=== PATIENT | male | born 1990 ===

== ENCOUNTER 2023-07-21 13:39 | Emergency (ER) | payer SELFPAY ==
--- NOTE | 2023-07-21 14:06 | ED Neurological Problem ---
General Chief Complaint: Neurological Problems Stated Complaint: RT SIDE FACIAL NUMBNESS Nursing Triage Note: PT REPORTS SOME RIGHT SIDED FACIAL NUMBNESS AND DROOPING AND SOME PRESSURE IN THE BACK OF HIS HEAD SINCE ABOUT 0900. 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 Started this morning, slow in onset, does not feel like he can raise his eyebrow. Has never happened before. Denies any fever, headache, vision changes, voice changes, weakness in other parts of his body, or any true numbness. Allergies and Home Medications Allergies Coded Allergies: No Known Drug Allergies (Unverified , 07/21/23) Patient Home Medication List Home Medication List Reviewed: Yes Prednisone (Prednisone) 20 Mg Tab, 60 MG PO DAILY Prescribed by: IDA MIN on 07/21/23 1407 Valacyclovir HCl (Valacyclovir) 1,000 Mg Tablet, 1,000 MG PO TID Prescribed by: IDA MIN on 07/21/23 1407 Review of Systems Review of Systems Constitutional: No fever Eyes: No Symptoms Reported Ears, Nose, Mouth, Throat: no symptoms reported Respiratory: no symptoms reported Cardiovascular: no symptoms reported Gastrointestinal: no symptoms reported Genitourinary: no symptoms reported Musculoskeletal: no symptoms reported Skin: no symptoms reported Psychiatric/Neurological: See HPI Endocrine: No Symptoms Reported Past Scvszye-Dkvfuw-Nbzgfa Hx Patient Social History Tobacco Use?: Yes Tobacco type used: Cigarettes Smoking Status: Current Someday Smoker Use of E-Cig and/or Vaping dev: No Substance use?: No Alcohol Use?: No Pt feels they are or have been: No Physical Exam Vital Signs Vital Signs - First Documented 07/21/23 13:40 Temp 36.4 Pulse 75 Resp 16 B/P (MAP) 165/90 (115) Pulse Ox 99 O2 Delivery Room Air Capillary Refill : Less Than 3 Seconds Height, Weight, BMI Height: '" Weight: lbs. oz. kg; BMI Method: General Appearance: WD/WN, no apparent distress HEENT: PERRL/EOMI, normal ENT inspection, pharynx normal Neck: non-tender, full range of motion, supple, normal inspection Respiratory: chest non-tender, lungs clear, normal breath sounds, no respiratory distress, no accessory muscle use Cardiovascular: regular rate, rhythm, no edema, no murmur Gastrointestinal: normal bowel sounds, non tender, soft; No distended, No guarding, No rebound Back: normal inspection, no CVA tenderness Extremities: normal range of motion, non-tender, normal inspection, no pedal edema, no calf tenderness, normal capillary refill Neurologic/Psychiatric: alert, normal mood/affect, other (Right-sided facial droop that includes his right eyebrow and forehead, no numbness, cranial nerves otherwise normal) Crainal Nerves: normal hearing, normal speech, PERRL Coordination/Gait: normal finger to nose, normal gait Motor/Sensory: no sensory deficit, no pronator drift Skin: normal color, warm/dry Progress/Results/Core Measures Results/Orders Vital Signs/I&O 07/21/23 07/21/23 13:40 14:13 Temp 36.4 36.4 Pulse 75 75 Resp 16 16 B/P (MAP) 165/90 (115) 165/90 Pulse Ox 99 99 O2 Delivery Room Air Room Air Blood Pressure Mean: 115 Progress Progress Note : Progress Note 33-year-old male with above history coming in due to right-sided facial droop. ABCs were intact and vitals were stable on presentation. Physical exam includes unilateral facial paralysis that does not spare the forehead, cannot raise the eyebrow on the unaffected side. 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 He had complained of numbness, however has no objective numbness on exam, and he states this sensation is exactly the same when I test him from 1 side to the other. We will start him on steroids and antivirals. I will have him follow-up with his PCP as an outpatient. Departure Impression Primary Impression: Alvarez's palsy Disposition: 01 HOME, SELF-CARE Condition: Stable Departure-Patient Inst. Decision time for Depature: 14:15 Referrals: NO,LOCAL PHYSICIAN (PCP/Family) Primary Care Physician Patient Instructions: Alvarez's Palsy (DC) Add. Discharge Instructions: You have what is called Alvarez's palsy. This causes weakness on the right side of your face. This typically will get worse and can take quite some time to improve. It can cause changes in your taste, changes in your hearing where things sound louder, can make it difficult to produce tears, and you can have some feelings of numbness at times. There can also be pain behind your ear sometimes. You will be on a steroid and an antiviral for the next week. Please follow back up with your regular doctor, however it does take quite some time to get better. Tape your eye shut at night, because the eye sometimes opens up and can get dry. Tienes lo que se llama parlisis de Alvarez. [place] provoca debilidad en el lado derecho de la bella. Por lo general, esto empeorar y puede christopher bastante tiempo mejorar. Puede causar cambios en el gusto, cambios en la audicin donde las cosas suenan ms [place], puede dificultar la produccin de lgrimas y, a veces, puede tener cierta sensacin de entumecimiento. A veces tambin puede danis dolor detrs de la oreja. Estar tomando un esteroide y un antiviral popeye la prxima semana. Vuelva a consultar con bob mdico de cabecera; sin embargo, la mejora lleva bastante tiempo. Cirrese el flory con cinta adhesiva por la noche, porque a veces el flory se abre y puede secarse. Scripts Valacyclovir HCl (Valacyclovir) 1,000 Mg Tablet 1000 MG PO TID for 1 Day, #21 TAB Prov: IDA MIN MD 07/21/23 Prednisone (Prednisone) 20 Mg Tab 60 MG PO DAILY for 7 Days, #21 TAB 0 Refills Prov: IDA MIN MD 07/21/23 Work/School Note: Work Release Form Date Seen in the Emergency Department: Jul 21, 2023 Return to Work: Jul 22, 2023 Restrictions: No Restrictions IDA MIN MD Jul 21, 2023 14:06
[2023-07-21] MEDS ORDERED: PRD20T PO (14:07)
[2023-07-21] MEDS ORDERED: VALA10007 PO (14:07)
[2023-07-21 14:13] VITALS: BP 165/90
== END 2023-07-21 14:13 | disposition home or self-care (01) ==
LOC: ER FS 13:42
DX: G51.0 Bell's palsy (principal); F17.210 Nicotine dependence, cigarettes, uncomplicated
CPT/HCPCS: 99281

== ENCOUNTER 2023-08-08 09:40 | Emergency (ER) | payer SELFPAY ==
[~2023-08-08] VITALS: Ht 162 cm; Wt 96.0 kg
[~2023-08-08 09:40] MED LIST: PRD20T PO; VALA10007 PO
--- NOTE | 2023-08-08 09:56 | ED Chest Pain ---
General Stated Complaint: CHEST PAIN History of Present Illness Date Seen by Provider: Aug 08, 2023 Time Seen by Provider: 09:51 Initial Comments 33-year-old male brought in by EMS from [facility] with concerns of EKG changes. Patient was reported to EMS that he has had 4 days of chest pain and that he has some concerning findings on EKG. EKG brought in by [facility] does not show any acute findings or concerns but does have some artifact. Patient reports that he was there following up on Alvarez's palsy and has no complaints of chest pain to me. He does report that he was just really anxious and nervous. Patient is Stateless-speaking and official court interpreter is used so HPI may be lost during translation. However at this time he denies chest pain or having chest pain. He denies shortness of breath, fever, chills, cough. Twelve-lead obtained by EMS in route shows no acute findings and was reviewed by me. Allergies and Home Medications Allergies Coded Allergies: No Known Drug Allergies (Unverified , 07/21/23) Patient Home Medication List Home Medication List Reviewed: Yes Prednisone (Prednisone) 20 Mg Tab, 60 MG PO DAILY Prescribed by: IDA MIN on 07/21/23 1407 Valacyclovir HCl (Valacyclovir) 1,000 Mg Tablet, 1,000 MG PO TID Prescribed by: IDA MIN on 07/21/23 1407 Review of Systems Review of Systems Constitutional: see HPI EENTM: See HPI Respiratory: No Symptoms Reported Cardiovascular: See HPI Gastrointestinal: No Symptoms Reported Genitourinary: No Symptoms Reported Musculoskeletal: no symptoms reported Skin: no symptoms reported Psychiatric/Neurological: See HPI Physical Exam Vital Signs Vital Signs - First Documented 08/08/23 10:25 Temp 36.9 Pulse 77 Resp 16 B/P (MAP) 144/82 (102) Pulse Ox 96 O2 Delivery Room Air Capillary Refill : Height, Weight, BMI Height: '" Weight: lbs. oz. kg; BMI Method: General Appearance: No Apparent Distress, WD/WN HEENT: Other (Mild right-sided droop consistent with Alvarez's palsy diagnosed) Neck: Full Range of Motion, Normal Inspection Respiratory: Lungs Clear, Normal Breath Sounds Cardiovascular: Regular Rate, Rhythm, No Edema, No Gallop Gastrointestinal: Non Tender, Soft Extremity: Normal Capillary Refill, Normal Inspection, Normal Range of Motion Neurologic/Psychiatric: Alert, Oriented x3 Skin: Normal Color, Warm/Dry Progress/Results/Core Measures Results/Orders Lab Results Laboratory Tests Test 08/08/23 09:50 Range/Units White Blood Count 6.1 4.3-11.0 10^3/uL Red Blood Count 5.47 4.30-5.52 10^6/uL Hemoglobin 16.4 13.3-17.7 g/dL Hematocrit 48 40-54 % Mean Corpuscular Volume 88 80-99 fL Mean Corpuscular Hemoglobin 30 25-34 pg Mean Corpuscular Hemoglobin Concent 34 32-36 g/dL Red Cell Distribution Width 13.2 10.0-14.5 % Platelet Count 170 130-400 10^3/uL Mean Platelet Volume 11.1 9.0-12.2 fL Immature Granulocyte % (Auto) 1 % Neutrophils (%) (Auto) 65 42-75 % Lymphocytes (%) (Auto) 26 12-44 % Monocytes (%) (Auto) 6 0-12 % Eosinophils (%) (Auto) 2 0-10 % Basophils (%) (Auto) 0 0-10 % Neutrophils # (Auto) 4.0 1.8-7.8 10^3/uL Lymphocytes # (Auto) 1.6 1.0-4.0 10^3/uL Monocytes # (Auto) 0.4 0.0-1.0 10^3/uL Eosinophils # (Auto) 0.1 0.0-0.3 10^3/uL Basophils # (Auto) 0.0 0.0-0.1 10^3/uL Immature Granulocyte # (Auto) 0.0 0.0-0.1 10^3/uL Percent Immature Platelet Fraction 7.6 0.0-7.6 % Sodium Level 140 135-145 MMOL/L Potassium Level 3.9 3.6-5.0 MMOL/L Chloride Level 102 98-107 MMOL/L Carbon Dioxide Level 25 21-32 MMOL/L Anion Gap 13 5-14 MMOL/L Blood Urea Nitrogen 13 7-18 MG/DL Creatinine 0.64 0.60-1.30 MG/DL Estimat Glomerular Filtration Rate 129 BUN/Creatinine Ratio 20 Glucose Level 110 H 70-105 MG/DL Calcium Level 9.3 8.5-10.1 MG/DL Corrected Calcium 8.5-10.1 MG/DL Total Bilirubin 0.4 0.1-1.0 MG/DL Aspartate Amino Transf (AST/SGOT) 25 5-34 U/L Alanine Aminotransferase (ALT/SGPT) 50 0-55 U/L Alkaline Phosphatase 83 40-136 U/L Troponin I < 0.30 <0.30 NG/ML Total Protein 7.5 6.4-8.2 GM/DL Albumin 4.8 H 3.2-4.5 GM/DL My Orders Orders - JEAN MARIE BOTELLO DO Cbc And Automated Diff (08/08/23 09:56) Comprehensive Metabolic Panel (08/08/23 09:56) Troponin I Fs (08/08/23 09:56) Ekg Tracing (08/08/23 09:56) Monitor-Rhythm Ecg Trace Only (08/08/23 09:56) Chest 1 View Ap/Pa Only (08/08/23 09:56) Vital Signs/I&O 08/08/23 10:25 Temp 36.9 Pulse 77 Resp 16 B/P (MAP) 144/82 (102) Pulse Ox 96 O2 Delivery Room Air Initial ECG Impression Date: Aug 08, 2023 Initial ECG Impression Time: 09:52 Initial ECG Rate: 77 Initial ECG Rhythm: Normal Sinus Initial ECG Impression: Normal Comment No acute ST elevation or changes noted Diagnostic Imaging Diagonstic Imaging: Xray Plain Films/CT/US/NM/MRI: chest Comments Date of Exam:08/08/23 CHEST 1 VIEW AP/PA ONLY Clinical indications: Patient with chest discomfort. EXAM: Portable chest x-ray upright view. COMPARISON: None. FINDINGS: Lungs/pleura: Lungs are clear. There is no pneumothorax. There is no pleural effusion. Mediastinum: Unremarkable. Pulmonary vasculature: Unremarkable. Heart: Unremarkable. Bones/extrathoracic soft tissue: There are small degenerative spurs involving the thoracic spine. IMPRESSION: There is no radiographic evidence of acute cardiopulmonary process. Reviewed: Reviewed by Me, Reviewed/Discussed Departure Impression Primary Impression: Anxiety about health Additional Impression: Alvarez's palsy Disposition: 01 HOME, SELF-CARE Condition: Stable Departure-Patient Inst. Referrals: NO,LOCAL PHYSICIAN (PCP/Family) Primary Care Physician Patient Instructions: Anxiety, Adult ED, Alvarez's Palsy Exercises Add. Discharge Instructions: follow up with your regular doctor as needed. JEAN MARIE BOTELLO DO Aug 08, 2023 09:56
--- NOTE | 2023-08-08 10:11 | Diagnostic Imaging Report ---
Clinical indications: Patient with chest discomfort. EXAM: Portable chest x-ray upright view. COMPARISON: None. FINDINGS: Lungs/pleura: Lungs are clear. There is no pneumothorax. There is no pleural effusion. Mediastinum: Unremarkable. Pulmonary vasculature: Unremarkable. Heart: Unremarkable. Bones/extrathoracic soft tissue: There are small degenerative spurs involving the thoracic spine. IMPRESSION: There is no radiographic evidence of acute cardiopulmonary process. Dictated by: Dictated on workstation # [id number]
[2023-08-08 10:22] LABS: BASOPHILS % (AUTO) 0 % (0-10); EOSINOPHILS # (AUTO) 0.1 10^3/uL (0.0-0.3); EOSINOPHILS % (AUTO) 2 % (0-10); HEMATOCRIT 48 % (40-54); HEMOGLOBIN 16.4 g/dL (13.3-17.7); LYMPHOCYTES # (AUTO) 1.6 10^3/uL (1.0-4.0); LYMPHOCYTES % (AUTO) 26 % (12-44); MEAN CORPUSCULAR HEMOGLOBIN 30 pg (25-34); MEAN CORPUSCULAR HGB CONC 34 g/dL (32-36); MEAN CORPUSCULAR VOLUME 88 fL (80-99); MEAN PLATELET VOLUME 11.1 fL (9.0-12.2); MONOCYTES # (AUTO) 0.4 10^3/uL (0.0-1.0); MONOCYTES % (AUTO) 6 % (0-12); NEUTROPHILS % (AUTO) 65 % (42-75); PLATELET COUNT 170 10^3/uL (130-400); WHITE BLOOD COUNT 6.1 10^3/uL (4.3-11.0)
[2023-08-08 10:25] VITALS: BP 144/82
[2023-08-08 10:31] LABS: SODIUM 140 MMOL/L (135-145)
[2023-08-08 10:32] LABS: POTASSIUM 3.9 MMOL/L (3.6-5.0)
[2023-08-08 10:38] LABS: ALANINE AMINOTRANSFERASE 50 U/L (0-55); ALBUMIN 4.8 GM/DL (3.2-4.5); ALKALINE PHOSPHATASE 83 U/L (40-136); BILIRUBIN,TOTAL 0.4 MG/DL (0.1-1.0); BUN/CREATININE RATIO 20; CALCIUM 9.3 MG/DL (8.5-10.1); CARBON DIOXIDE 25 MMOL/L (21-32); CHLORIDE 102 MMOL/L (98-107); CREATININE SERUM 0.64 MG/DL (0.60-1.30); GFR ESTIMATED 129; GLUCOSE 110 MG/DL (70-105); TOTAL PROTEIN 7.5 GM/DL (6.4-8.2)
== END 2023-08-08 10:50 | disposition home or self-care (01) ==
LOC: EDUNIT# 09:40 → ER FS 09:42
DX: F41.9 Anxiety disorder, unspecified (principal); G51.0 Bell's palsy
CPT/HCPCS: 36415; 71045; 80053; 84484; 85025; 93041